=== PATIENT | female | born 1935 | race Caucasian/White ===

== ENCOUNTER → 2016-11-12 | Outpatient (CLI) | payer MEDICARE, OTHER ==
[~2016-11-12] MED LIST: /LOR25TA OR; ACET500C OR; ALLO100T OR; CALC500T49 OR; DOKTAB2 PO; EVISTA PO; FLEXERIL PO; HYDR25TA6 OR; LIDO5DIS TOP; MIRA33504 PO; OCCUVITE PO; OSTEOBIFLEX PO; PERC5TAB12 PO; PERCOCET PO; PRIL20CA9 PO; SENN1TAB2 PO; SYNT100T PO; SYNT125T OR; TYLE325T5 PO; VITA2000 PO; XARE15TA PO; [UNRECOGNIZED DRUG - OTHER] TOP
--- NOTE | 2016-11-12 14:44 | RADONC ---
RADIATION ONCOLOGY FOLLOWUP NOTE DATE: 11/12/2016 CHART NUMBER: [id number] DIAGNOSIS: Left-sided breast cancer. STAGE: I, B2hT4U0. DIAGNOSIS: Right-sided breast cancer. STAGE: 0, [id number]. ECOG PERFORMANCE STATUS: 0 FOLLOWUP NOTE: Ms. Bartlett is a very pleasant 81-year-old white female with the diagnosis of bilateral breast cancer who is presenting to us today for routine followup visit 18 years post completion of external beam radiation therapy to her left breast and 16 years post completion of external beam radiation therapy to her right breast. The patient presents today reporting that she is doing quite well with no complaints at this time related to her radiation therapy or disease. She has no breast, chest wall or bone pain. REVIEW OF SYSTEMS: The patient's review of systems is noncontributory. She denies nausea, vomiting, fevers, chills, night sweats, diplopia, headaches, anxiety or depression, anorexia, weight loss, visual disturbances, chest pain, urinary or bowel difficulties, bone pain, or neurological problems. PHYSICAL EXAMINATION: The patient is a well-developed, well-nourished white female in no acute distress. HEENT exam is normocephalic, atraumatic. Extraocular movements are intact. There is no palpable cervical, supraclavicular, infraclavicular, axillary, or inguinal lymphadenopathy present. Lungs are clear to auscultation and percussion. Heart has a regular rate and rhythm. Abdomen is benign with no hepatosplenomegaly, masses, or tenderness. The patient's left breast is free of masses or nodularity. Her right chest wall shows no evidence of nodularity, ulceration or residual disease. Skeletal examination reveals no tenderness to pressure or percussion of the bony skeleton. Extremities reveal no clubbing, cyanosis, or edema. Neurologic exam is grossly intact, as is the remainder of the physical examination. ASSESSMENT: The patient is clinically JUICE at this time will be seen by us again in 1 year for further followup. She will also continue be followed by her other physicians as well. cc: Thanh Andres Jr, MD
== END ==
LOC: M ONCR 08:41
PROVIDERS: ATTEND Radiology Radiation Oncology
DX: D05.11 Intraductal carcinoma in situ of right breast (principal); Z12.31 Encounter for screening mammogram for malignant neoplasm of breast
CPT/HCPCS: G0202; G0463

== ENCOUNTER → 2016-11-12 | Outpatient (CLI) | payer MEDICARE, OTHER ==
--- NOTE | 2016-11-12 10:02 | REP ---
UNILATERAL MAMMOGRAM LEFT BREAST: HISTORY: History of right breast cancer and right mastectomy. Also history left breast cancer. MLO and CC views of the left breast are performed and compared to multiple prior exams most recent of which is 11/08/2015. Benign calcifications are present. There is no new mass or clustered microcalcifications. IMPRESSION: ACR 2 benign mammogram left breast in this patient status post right mastectomy. Suggest followup mammogram in 1 year. This mammogram was interpreted with the aid of an FDA-approved computer-aided detection system. The patient states she has not had a clinical breast exam in over a year. The patient letter being requested is M1. Signed by Michael Parker MD 11/12/2016 05:35 P
== END ==
LOC: M RAD 08:17
PROVIDERS: ATTEND Nurse Practitioner Family
DX: Z12.31 Encounter for screening mammogram for malignant neoplasm of breast (principal)

== ENCOUNTER → 2017-01-29 | Outpatient (CLI) | payer MEDICARE, OTHER ==
[2017-01-29 11:41] LABS: MEAN CORPUSCULAR HEMOGLOBIN 30.3 pg (27.0-33.0); MEAN CORPUSCULAR HGB CONC 32.6 g/dl (32.0-36.5); WHITE BLOOD COUNT 7.7 10^3/uL (4.0-10.0)
--- NOTE | 2017-01-29 11:47 | REP ---
Chest two views HISTORY: Atrial fibrillation Comparison: 08/03/2015 A calcified granuloma is present in the left lower lobe. The right lung is clear. The heart is normal in size. The pulmonary vasculature is normal in appearance. A hiatal hernia is present. The bony structure is intact. IMPRESSION: No acute disease. Signed by Jason Landa MD 01/29/2017 11:39 A
[2017-01-29 11:59] LABS: INR 1.29
[2017-01-29 12:14] LABS: ALBUMIN 3.9 GM/DL (3.2-5.2); ALBUMIN/GLOBULIN RATIO 1.08 (1.00-1.93); ALKALINE PHOSPHATASE 65 U/L (45-117); ALT/SGPT 23 U/L (12-78); ANION GAP 6 MEQ/L (8-16); AST/SGOT 17 U/L (15-37); BILIRUBIN,TOTAL 0.7 MG/DL (0.2-1.0); BLOOD UREA NITROGEN 14 MG/DL (7-18); CALCIUM LEVEL 9.3 MG/DL (8.8-10.2); CARBON DIOXIDE LEVEL 32 MEQ/L (21-32); CHLORIDE LEVEL 100 MEQ/L (98-107); CREATININE FOR GFR 0.93 MG/DL (0.55-1.02); GLOMERULAR FILTRATION RATE > 60.0 (>32); GLUCOSE, FASTING 86 MG/DL (83-110); POTASSIUM SERUM 3.6 MEQ/L (3.5-5.1); SODIUM LEVEL 138 MEQ/L (136-145); TOTAL PROTEIN 7.5 GM/DL (6.4-8.2)
--- NOTE | 2017-01-30 23:15 | ECGEPIP ---
Stationary ECG Study [facility] Test Date: 2017-01-29 Pat Name: THIEN PENA Department: Room: - Gender: F Director Of Brand Marketing: YAS : [id number] Requested By: Zev Lara Order Number: [id number] Reading MD: Modesto Wood Measurements Intervals [place] Rate: 54 P: 21 AR: 180 QRS: -33 QRSD: 166 T: 53 QT: 472 QTc: 448 Interpretive Statements SINUS BRADYCARDIA MARKED LEFT AXIS DEVIATION LEFT BUNDLE BRANCH BLOCK OOMPARED TO THE LAST 2 TRACINGS IN THE SYSTEM, NO SIGNIFICANT CHANGES Electronically Signed On 01-30-2017 23:14:36 EDT by Modesto Wood
== END ==
LOC: M ADMPAT 09:22
PROVIDERS: ATTEND Orthopaedic Surgery
DX: M25.561 Pain in right knee (principal); M12.9 Arthropathy, unspecified; Z79.01 Long term (current) use of anticoagulants; Z01.818 Encounter for other preprocedural examination; Z79.899 Other long term (current) drug therapy

== ENCOUNTER 2017-02-16 05:47 | Inpatient (IN) | payer MEDICARE, OTHER ==
[2017-01-29 09:47] VITALS: BP 132/78
--- NOTE | 2017-02-09 13:19 | HPE ---
DATE OF ADMISSION: 02/16/2017 ADMITTING DIAGNOSIS: Symptomatic right knee osteoarthritis. HISTORY OF PRESENT ILLNESS: This is a pleasant female continuing to have symptomatic right knee osteoarthritis. She has consented for a right total knee arthroplasty per Dr. Marco Candelaria. Medical optimization per Dr. Andres on 01/30/2017, I am still awaiting optimization note. Per patient's history, she has been cleared. X-rays are consistent with advanced osteoarthritis. ALLERGIES: - ERYTHROMYCIN - TAPE - CODEINE - TRAMADOL MEDICATION LIST (List includes): - allopurinol 100 mg - Evista 60 mg - hydrochlorothiazide 25 mg - Osteo Bi-Flex Advanced Triple Strength - Synthroid 125 mcg - Xarelto. - PreserVision AREDS - Prilosec 10 mg MEDICAL PROBLEM LIST (includes): 1. Right knee osteoarthritis. 2. Hypercholesteremia. 3. Type 2 diabetes. 4. Essential hypertension. 5. Atrial fibrillation. 6. Visually impaired. 7. Thyroid disease. The patient was counseled to only take Synthroid and metoprolol the morning of surgery and will start metoprolol blood daily every morning. This is a note the patient provided from Dr. Andres's office. Additionally, she is counseled to stop Xarelto for two days, stop Evista now and it appears to be for one month after surgery. SURGICAL HISTORY (includes): 1. Tonsillectomy with adenoidectomy. 2. Dilation and curettage. FAMILY HISTORY: Positive for cancer. SOCIAL HISTORY: Former smoker. Drinks alcohol beverages rarely. Denies illicit drugs. REVIEW OF SYSTEMS: Denies chest pain, shortness of breath, dyspnea on exertion, fever, chills, malaise, upper respiratory or urinary tract symptoms. PHYSICAL EXAMINATION: Height 64 inches, weight 196, temperature 97.3, blood pressure (BP) 118/82, respirations 13, pulse 37, body mass index (BMI) 33.6. This is a pleasant overweight female in no acute distress. She is alert and oriented times three. Mood and affect are appropriate. She is ambulating slow with favoring of left lower extremity. No gross antalgia about the right knee which is benign, noninfectious looking, not hot to touch. Positive medial joint line tenderness with crepitance about the knee through flexion and extension. Range of motion is 0 to 90. She is stable in both collateral ligaments, patella and quad tendons without palpable defects. Patellofemoral joint congruent, static and dynamic. No popliteal fossa mass or pain. Right hip range of motion is not grossly limited or irritable. It is noted that her left knee has a well healed anterior vertical knee scar site consistent with arthroplasty. Bowel sounds times four, soft, nontender. Chest: Rises symmetrically. Regular rate and rhythm. Lungs: Clear to auscultation. Neck: Supple. Negative jugular venous distention (JVD) or bruits. Normocephalic. LABS: Were reviewed. Nasal and sinus culture showed a few methicillin- resistant resistant Staph aureus. Urine culture negative. Otherwise, prothrombin time was 16.4, anion gap 6. Chest x-ray with no acute disease read by Dr. Landa on 01/29/2017. EKG showing sinus bradycardia read by Dr. Modesto Wood with marked left axis deviation and left bundle branch block. Consent for surgery was completed on 01/01/2017. IMPRESSION: 1. Continuing symptomatic right knee osteoarthritis. 2. Patient consented for a right total knee arthroplasty per Dr. Marco Candelaria. 3. Medical optimization with Dr. Andres 01/30/2017, which we are still awaiting a note. 4. On-call to OR 2 grams IV Kefzol in OR. 5. Sequential compression device (SCD) and thromboembolic deterrent stockings (TEDS) in OR. 6. Consent was visualized in clinic today. 7. The patient is requesting a longer stay in postoperative rehab to try and advance her status sooner since she feels she could do therapy more than two days a week. ADDENDUM: Per the patient's positive nasal and sinus culture for methicillin-resistant Staphylococcus aureus (MRSA), she was provided a prescription of Bactrim DS times 5 days. Edited 02/09/2017 juli DUDLEY
[~2017-02-16] VITALS: Ht 163.8 cm; Wt 87.7 kg
[~2017-02-16 05:47] MED LIST changes: -MIRA33504 PO; -PERC5TAB12 PO; -SENN1TAB2 PO
[2017-02-16] MEDS ORDERED: LR 1,000 ML IV SCH ×2 (06:00→10:00)
[2017-02-16] MEDS ORDERED: ACETAMINOPHEN 500 MG TAB PO ONE ×2 (06:00→07:15)
[2017-02-16] MEDS ORDERED: LIDOCAINE 1% MDV 20ML VIAL SQ PRN (06:00)
[2017-02-16] MEDS ORDERED: VANCOMYCIN HCL 1,000 MG, VIAL MATE ADAPTER 1 EACH in D5W 250 ML IV ONE (06:30)
[2017-02-16] MEDS ORDERED: fentaNYL 100 MCG/2 ML INJECTION (J3010) As Ordered ONE ×2 (07:04→07:16)
[2017-02-16] MEDS ORDERED: MIDAZOLAM INJ 2 MG/2 ML VIAL (J2250) As Ordered ONE ×3 (07:04→08:14)
[2017-02-16] MEDS ORDERED: ceFAZolin 1GM INJ (J0690) As Ordered ONE (07:08)
[2017-02-16] MEDS ORDERED: TRANEXAMIC ACID 100 MG/ML 10ML VIAL As Ordered ONE ×2 (07:08→07:09)
[2017-02-16] MEDS ORDERED: EPINEPHrine INJ 1 MG/ML 1ML AMP As Ordered ONE (07:08)
[2017-02-16] MEDS ORDERED: BUPIVACAINE LIPOSOME/PF 1.3% 20 ML VIAL (13.3MG/ML)(EXPAREL) As Ordered ONE (07:09)
[2017-02-16] MEDS ORDERED: LIDOCAINE 2% INJ 100 MG/5 ML SDV (FOR ANES.) As Ordered ONE (07:16)
[2017-02-16] MEDS ORDERED: PROPOFOL 200 MG/20 ML VIAL As Ordered ONE ×2 (07:16→09:19)
[2017-02-16] MEDS ORDERED: fentaNYL 100 MCG/2 ML INJECTION (J3010) IV ONE (08:00)
[2017-02-16] MEDS ORDERED: MIDAZOLAM INJ 2 MG/2 ML VIAL (J2250) IV ONE (08:00)
[2017-02-16] MEDS ORDERED: ePHEDrine SULFATE 25 MG/5 ML(5MG/ML) SYRINGE As Ordered ONE (08:25)
[2017-02-16] MEDS ORDERED: ONDANSETRON 4MG/2ML VIAL (J2405) As Ordered ONE (08:38)
[2017-02-16] MEDS ORDERED: MORPHINE 1MG/ML IN 0.9% NACL 100ML IV BAG As Ordered ONE (09:55)
[2017-02-16] MEDS ORDERED: NALBUPHINE HCL 10 MG/ML AMP (J2300) IV PRN (10:00)
[2017-02-16] MEDS ORDERED: FLEET ENEMA PR PRN (10:00)
[2017-02-16] MEDS ORDERED: ONDANSETRON 4MG/2ML VIAL (J2405) IV PRN ×2 (10:00→10:45)
[2017-02-16] MEDS ORDERED: EPIDURAL/PCA KEYS XX PRN (10:00)
[2017-02-16] MEDS ORDERED: NALOXONE INJ 0.4 MG/1 ML VIAL (J2310) IV PRN (10:00)
[2017-02-16] MEDS ORDERED: MORPHINE 1MG/ML IN 0.9% NACL 100ML IV BAG IV PRN (10:00)
[2017-02-16] MEDS ORDERED: diphenhydrAMINE INJ 50MG/ML VIAL (J1200) IV PRN (10:00)
--- NOTE | 2017-02-16 10:27 | RO ---
DATE OF PROCEDURE: 02/16/2017 PREOPERATIVE DIAGNOSIS: Right knee valgus arthritis. POSTOPERATIVE DIAGNOSIS: Right knee valgus arthritis. PROCEDURE: Right total knee arthroplasty using a size 3 cruciate-retaining femoral component, size 2.5 tibial tray with a 10 mm rotating-platform polyethylene insert and a 32 mm polyethylene button. The prosthesis was made by [employer]. It was a PFC knee. SURGEON: Zev Candelaria MD BAR ASSISTANT: Crow De La Cruz PA-C ANESTHESIA: Spinal with right femoral nerve block. COMPLICATIONS: None. ESTIMATED BLOOD LOSS: Less than 20 mL. SPECIMENS: Joint surface. COMPLICATIONS: None. DESCRIPTION OF PROCEDURE: After antibiotics were given intravenously preoperatively and a successful right femoral nerve block and a spinal anesthetic was induced, the tourniquet was placed on the right upper thigh and not inflated. The right lower extremity was then prepped and draped in the usual sterile fashion. The leg was elevated. Then, after appropriate time-out, the tourniquet was inflated, and then a longitudinal incision was made for a medial parapatellar approach to the knee. Bovie cautery was used to coagulate crossing vessels. A medial parapatellar arthrotomy was then performed. Subperiosteal dissection around the proximal medial and lateral tibial plateau was performed. Then, we everted the patella and flexed the knee. The drill placed down the center of the femoral canal, followed by the intramedullary gian, and the distal femoral cutting block set at a 5-degree valgus cut at 10-mm resection level for a right knee. It was pinned into position and the distal cut performed. AP sizing jig measured at just shy of a 3. Thus, I elected to go with a size 3, which was equal to her opposite left side. The external rotation block was pinned in position, followed by the 4-in-1 block. Epicondyle axis and Whitesides line appeared to show rotation was appropriate. We then performed the anterior and posterior chamfer cuts and then exposed the proximal tibia, used the extramedullary alignment jig to estimate being parallel to the mechanical axis of the tibia. We referenced off the lateral tibial condyle at 4-mm resection level and measured over onto the medial side and we took 6 from there. So, it seemed to be appropriate for this valgus knee. Extramedullary gian was used a secondary check. It appeared to be parallel from the mechanical axis. Thus, we performed the proximal tibial osteotomy, and then we used the lamina van cdl driver medially, performed a completion of lateral meniscectomy, debriding the posterior and medial osteophytes, and then we placed the lamina van cdl driver laterally, and performed a completion of medial meniscectomy with debridement of the posterior and lateral osteophytes. The spacer blocks 10 mm fit perfectly in both flexion and in extension with good stability to varus and valgus stress testing. We then exposed the proximal tibia, sized for a #2.5 tibial tray, which was pinned into position, followed by the reamer and broach, and then applied the polyethylene trial, and then the femoral component, brought the knee into extension, everted the patella, and performed a patellar osteotomy, sized for a 32 button. The lug holes were drilled. Patellofemoral trial was placed, and the patellofemoral tracking was anatomic. We drilled the lug holes for the femur, removed all the trial components, and then injected Exparel in the periosteal tissues around the femur and the tibia, as well as the posterior capsule, while my health assistant, Mr. Crow De La Cruz, mixed the cement on the back table. I then prepared the bony surfaces for cementing with a copious amount of pulsatile lavage irrigant solution. Once all the bony surfaces were thoroughly dried, we then cemented the tibial tray, removed excess cement, placed the polyethylene, cemented the femoral component, removed excess cement, brought the knee into extension, everted the patella, and cemented the patellar component, and held it with a clamp, and then removed all excess cement, and waited until the cement hardened in that position. A copious amount of pulsatile lavage irrigant solution was instilled into the knee joint once again as we were waiting for the cement to harden. That was followed by the tranexamic acid. I then began closing the arthrotomy with two apex #1 polydioxanone suture (PDS) sutures and one medial parapatellar suture, then a running #1 double-arm Stratafix was used to close the capsule. Then, the tourniquet was released. Irrigated between layers. Closed the deep subdermal tissues with interrupted #2-0 PDS sutures. The skin was closed with lily, covered by Adaptic dry sterile bulky dressing. Mr. Crow De La Cruz was critical to the success of this operation by helping to manipulate the knee, helping with appropriate soft tissue retraction, helped to mix the cement, helped to close the wound, amongst many other tasks.
[2017-02-16] MEDS: fentaNYL 100 MCG/2 ML INJECTION (J3010) IV PRN ×2 (10:30→10:39)
[2017-02-16] MEDS ORDERED: MORPHINE 2 MG/ML 1ML SYRINGE IV PRN (10:45)
[2017-02-16] MEDS ORDERED: METOCLOPRAMIDE INJ 10MG/2ML VIAL (J2765) IV PRN (10:45)
[2017-02-16] MEDS ORDERED: PERCOCET 5MG/325MG TAB PO PRN ×2 (10:45→14:45)
[2017-02-16] MEDS ORDERED: hydroCHLOROthiazide 25 MG TAB PO ONE (11:15)
[2017-02-16 11:45] VITALS: BP 99/61
[2017-02-16] MEDS: LR 1,000 ML IV SCH ×2 (11:47→21:12)
[2017-02-16 12:15] VITALS: BP 116/61
[2017-02-16 13:15] VITALS: BP 106/61
[2017-02-16 14:15] VITALS: BP 146/74
[2017-02-16] MEDS: ONDANSETRON 4 MG TAB (S0181) PO PRN ×2 (15:02→21:28)
[2017-02-16] MEDS: PERCOCET 5MG/325MG TAB PO PRN ×2 (15:03→21:12)
[2017-02-16 15:15] VITALS: BP 140/75
[2017-02-16] MEDS: HEPARIN SOD (PORCINE) 5000 UNITS/ML VIAL SQ SCH ×2 (16:50→21:06)
[2017-02-16] MEDS: VANCOMYCIN HCL 1,000 MG, VIAL MATE ADAPTER 1 EACH in D5W 250 ML IV SCH (18:49)
[2017-02-16] MEDS: ONDANSETRON 4MG/2ML VIAL (J2405) IV PRN (18:49)
[2017-02-16 20:00] VITALS: BP 185/83
--- NOTE | 2017-02-16 20:50 | CR.PDOC ---
[facility] Consultation Consultation HOSPITALIST CONSULT NOTE Date of consult: 02/16/2017 Referring Provider: Dr. Shipman PCP: Dr. Andres Reason for Consult: Management of chronic medical conditions HPI: 82-year-old female with hyperlipidemia, hypertension, paroxysmal A. fib, macular degeneration, hypothyroidism who underwent left total knee replacement today with Dr. Shipman. She is seen postoperatively. She endorses some nausea and vomiting but denies any chest pain or difficulty breathing. Past medical history: Hyperlipidemia, hypertension, paroxysmal A. fib, macular degeneration, hypothyroidism, breast cancer status post right mastectomy and radiation, diabetes mellitus as documented however the patient denies this Past surgical history: Right mastectomy, tonsillectomy with adenoidectomy, D&C Family history: Cancer Social history: The patient quit smoking approximately 48 years ago. She only drinks an alcoholic beverage on a very rare occasion she denies any drug use. Allergies: Aminoglycosides, bacitracin, codeine, erythromycin, hayfever, neomycin, and polymyxin B, tape Review of systems: General: Negative for fever and chills Eyes: Negative for vision changes and ocular discharge ENT: Negative for sore throat and nose bleed Cardiovascular: Negative for chest pain and palpitations Respiratory: Negative for shortness of breath, positive for cough GI: Positive for nausea and vomiting. Positive for 1 loose stool both yesterday and the day before. Musculoskeletal: Negative for neck and back pain Skin: Negative for rash Neuro: Negative for headache and dizziness, positive for numbness and tingling of her right toes Psych: Positive for depression and anxiety, negative for suicidal ideation Endocrine: Negative for polyuria : Negative for dysuria Heme: Negative for bleeding Home meds: See below Physical exam: Vital signs: Vital Sign - Last 24 Hours 02/16/17 02/16/17 02/16/17 02/16/17 07:04 07:10 07:25 07:38 Temp 97.8 Pulse 76 58 58 52 Resp 18 20 20 20 B/P (MAP) 147/78 (101) 187/88 (121) 182/79 (113) 160/73 (102) Pulse Ox 97 100 100 100 O2 Delivery Room Air High Flow Cannula High Flow Cannula High Flow Cannula O2 Flow Rate 3 3 3 02/16/17 02/16/17 02/16/17 02/16/17 09:37 09:55 10:10 10:25 Temp 97.5 97.7 Pulse 55 53 55 55 Resp 16 16 16 18 B/P (MAP) 151/65 (93) 148/87 (107) 169/72 (104) 190/81 (117) Pulse Ox 95 92 97 94 O2 Delivery Room Air Room Air Room Air Room Air 02/16/17 02/16/17 02/16/17 02/16/17 10:30 10:39 10:40 10:55 Temp 96.8 Pulse 51 54 Resp 16 16 18 18 B/P (MAP) 180/78 (112) 182/74 (110) Pulse Ox 99 96 O2 Delivery Nasal Cannula Nasal Cannula O2 Flow Rate 2 2 02/16/17 02/16/17 02/16/17 02/16/17 11:10 11:45 12:00 12:15 Temp 97.0 96.9 96.6 Pulse 54 58 58 Resp 16 20 12 B/P (MAP) 162/71 (101) 99/61 (74) 116/61 (79) Pulse Ox 96 95 97 O2 Delivery Nasal Cannula Nasal Cannula Nasal Cannula Nasal Cannula O2 Flow Rate 2 2.0 2.0 2.0 02/16/17 02/16/17 02/16/17 02/16/17 13:15 14:15 15:03 15:15 Temp 97.0 97.4 97.3 Pulse 56 56 57 Resp 10 12 20 14 B/P (MAP) 106/61 (76) 146/74 (98) 140/75 (96) Pulse Ox 98 98 96 O2 Delivery Nasal Cannula Nasal Cannula Nasal Cannula O2 Flow Rate 2.0 2.0 2.0 02/16/17 15:33 Resp 18 Gen.: awake, alert, no acute distress Eyes: Extraocular movements intact, normal sclera ENT: Moist mucous membranes Cardiovascular: RRR, 3 out of 6 systolic murmur Lungs: clear to auscultation bilaterally, no rales, rhonchi, or wheeze Abdomen: Soft, NT/ND, normal BS Extremities: Pedal pulses intact bilaterally Neuro: alert and oriented 3, normal speech, no focal deficits Psych: Normal mood with congruent affect Labs and radiology: See below None to review Assessment and plan: 82-year-old female with hyperlipidemia, hypertension, paroxysmal A. fib, macular degeneration, hypothyroidism who underwent left total knee replacement today with Dr. Shipman. We have been consulted for management of her chronic medical problems. 1. Hypothyroidism: Continue home Synthroid. 2. Paroxysmal A. fib: Continue home Xarelto. The patient is not on any rate suppressing medications at home but is currently rate controlled, continue to monitor rate. 3. Hyperlipidemia: No home medications reported. 4. Hypertension: Continue home HCTZ. 5. Questionable diabetes mellitus: It is documented that the patient has diabetes mellitus, however, she denies this and states she has never taken medication for it. We will check an A1c tomorrow morning. 6. Systolic murmur on exam: The patient states she has never been told before that she has a murmur, but she thinks that she had an echocardiogram with Dr. Stanley. We will request these records from Dr. Stanley's office. DVT prophylaxis: As per her surgical team Thank you for this consult. We will continue to follow along with you. Dr. Mela Gonzalez will assume care of the patient tomorrow morning. Vital Signs/I&O Vital Signs Date Time Temp Pulse Resp B/P (MAP) Pulse Ox O2 Delivery O2 Flow Rate FiO2 02/16/17 15:33 18 02/16/17 15:15 97.3 57 140/75 (96) 96 Nasal Cannula 2.0 I&O- Last 24 Hours up to 6 AM 02/17/17 06:00 Intake Total 2225 ml Output Total 200 ml Balance 2025 ml Allergies Coded Allergies: Aminoglycosides (Verified Allergy, Unknown, 08/03/12) Bacitracin (Verified Allergy, Unknown, 08/03/12) Codeine (Verified Allergy, Unknown, 08/03/12) Erythromycin (Verified Allergy, Unknown, 08/03/12) HAY FEVER (Verified Allergy, Unknown, 05/16/05) Neomycin (Verified Allergy, Unknown, 08/03/12) Polymyxin B (Verified Allergy, Unknown, 08/03/12) TAPE (Verified Allergy, Unknown, BANDAIDS, 08/16/15) Home Medications Scheduled Allopurinol (Allopurinol) 100 Mg Tab, 100 MG OR QAM, (Reported) Cholecalciferol (Vitamin D3) 2,000 Unit Cap, 2,000 UNIT PO QAM, (Reported) Hctz (Hydrochlorothiazide) 25 Mg Tab, 25 MG OR QAM, (Reported) Levothyroxine Sodium (Synthroid) 100 Mcg Tab, 112 MCG PO QAM, (Reported) Rivaroxaban (Xarelto) 15 Mg Tab, 20 MG PO QHS, (Reported) [Evista] , 60 MG PO DAILY, (Reported) [Occuvite] , 1 TABS PO BID, (Reported) [Osteobiflex] , 1 TAB PO BID, (Reported) Scheduled PRN Acetaminophen (Tylenol) 325 Mg Tab, 650 MG PO Q4HP PRN for PAIN, (Reported) [Metra Lotion] , TOP BID PRN for FACE, (Reported) HELLEN DAVIS Feb 16, 2017 20:50
[2017-02-17 00:15] VITALS: BP 156/68
[2017-02-17] MEDS: ONDANSETRON 4MG/2ML VIAL (J2405) IV PRN ×2 (02:50→08:59)
[2017-02-17] MEDS: PERCOCET 5MG/325MG TAB PO PRN ×4 (02:52→20:10)
[2017-02-17 04:15] VITALS: BP 157/68
[2017-02-17] MEDS: LEVOTHYROXINE 112MCG TABLET (0.112MG) PO SCH (06:09)
[2017-02-17] MEDS: VANCOMYCIN HCL 1,000 MG, VIAL MATE ADAPTER 1 EACH in D5W 250 ML IV SCH (06:09)
[2017-02-17] MEDS: ONDANSETRON 4 MG TAB (S0181) PO PRN ×2 (06:25→14:57)
[2017-02-17 07:04] LABS: MEAN CORPUSCULAR HEMOGLOBIN 31.1 pg (27.0-33.0); MEAN CORPUSCULAR HGB CONC 33.4 g/dl (32.0-36.5); MEAN CORPUSCULAR VOLUME 93.2 fl (80.0-96.0); RED CELL DISTRIBUTION WIDTH 14.7 % (11.5-14.5); WHITE BLOOD COUNT 9.2 10^3/uL (4.0-10.0)
[2017-02-17 07:17] LABS: INR 1.09
[2017-02-17 07:34] LABS: ANION GAP 4 MEQ/L (8-16); BLOOD UREA NITROGEN 9 MG/DL (7-18); CALCIUM LEVEL 8.7 MG/DL (8.8-10.2); CARBON DIOXIDE LEVEL 31 MEQ/L (21-32); CHLORIDE LEVEL 100 MEQ/L (98-107); CREATININE FOR GFR 0.74 MG/DL (0.55-1.02); GLOMERULAR FILTRATION RATE > 60.0 (>32); GLUCOSE, FASTING 113 MG/DL (83-110); POTASSIUM SERUM 3.4 MEQ/L (3.5-5.1); SODIUM LEVEL 135 MEQ/L (136-145)
[2017-02-17] MEDS: MOM 30ML SUSPENSION UDC PO SCH (08:58)
[2017-02-17] MEDS: HEPARIN SOD (PORCINE) 5000 UNITS/ML VIAL SQ SCH (08:59)
[2017-02-17] MEDS: SENOKOT S TAB PO SCH ×2 (08:59→20:11)
[2017-02-17] MEDS: MIRALAX *UNIT DOSE* 17GM PACKET PO SCH (08:59)
[2017-02-17] MEDS: ALLOPURINOL 100 MG TAB PO SCH (09:00)
[2017-02-17] MEDS: hydroCHLOROthiazide 25 MG TAB PO SCH (09:00)
[2017-02-17 10:00] VITALS: BP 95/66
--- NOTE | 2017-02-17 11:10 | REP ---
AP LATERAL RIGHT KNEE, TWO VIEWS: HISTORY: Knee replacement. The patient is status post right total knee replacement. There is no acute fracture or dislocation. A small amount of subcutaneous air and surgical lily are present in the overlying soft tissue. IMPRESSION: The patient is status post right total knee replacement. There is anatomic alignment. Signed by Jason Landa MD 02/17/2017 11:15 A
[2017-02-17] MEDS ORDERED: MORPHINE 15 MG SA TAB PO PRN (11:30)
[2017-02-17] MEDS: METOCLOPRAMIDE 10 MG TAB PO SCH ×3 (12:24→20:11)
[2017-02-17] MEDS ORDERED: POTASSIUM CHLORIDE 10 MEQ SR TABLET PO ONE (13:00)
[2017-02-17] MEDS ORDERED: WARFARIN SOD 5 MG TAB PO ONE (17:00)
[2017-02-17] MEDS: RIVAROXABAN 20 MG TAB (XARELTO) PO SCH (17:52)
--- NOTE | 2017-02-17 18:07 | IPNPDOC ---
Subjective Date Seen The patient was seen on 02/17/17. Subjective Chief Complaint/HPI The patient is a 82-year-old female admitted with a reason for visit of Arthritis Right Knee. Events since last encounter patient complaining of nausea and dry heaves, also complaining of severe pain in the operated knee which, has not been able to eat anything. Objective Physical Examination General Exam: Positive: Alert, Cooperative, No Acute Distress Eye Exam: Positive: PERRLA, Conjunctiva & lids normal, EOMI, Negative: Sclera icteric ENT Exam: Positive: Atraumatic, Mucous membr. moist/pink, Pharynx Normal Neck Exam: Positive: Supple, Negative: JVD, thyromegaly Chest Exam: Positive: Clear to auscultation, Normal air movement Heart Exam: Positive: Rate Normal, Regular Rhythm, Normal S1, Normal S2, Negative: Murmurs, Rubs Abdomen Exam: Positive: Normal bowel sounds, Soft, Negative: Tenderness, Hepatospenomegaly Extremity Exam: Positive: Normal pulses, Negative: Clubbing, Cyanosis, Edema Skin Exam: Positive: Nl turgor and temperature, Negative: Rash, Breakdown Assessment /Plan Problems (1) S/P total knee arthroplasty Status: Acute Problem Text: right total knee arthroplasty for advanced osteoarthritis. pain control as per ortho. Patient is on xarelto for a fib which will cover also dvt prophylaxis. (2) Paroxysmal a-fib Status: Chronic Problem Text: continue xarelto. (3) Hyperlipidemia Status: Chronic (4) Hypertension Status: Chronic Problem Text: continue home medications with hold parameters. (5) Hypothyroid Status: Chronic Problem Text: continue synthroid. (6) Macular degeneration Status: Chronic (7) History of breast cancer Status: Resolved Problem Text: had right mastectomy and radiation in the past. Plan/VTE VTE Prophylaxis Ordered?: Yes VS, I&O, 24H, Fishbone Vital Signs/I&O Vital Signs Date Time Temp Pulse Resp B/P (MAP) Pulse Ox O2 Delivery O2 Flow Rate FiO2 02/17/17 15:27 20 02/17/17 10:00 98.2 61 95/66 (76) 91 Room Air 02/17/17 06:30 2.0 I&O- Last 24 Hours up to 6 AM 02/18/17 06:00 Intake Total 0 ml Balance 0 ml Laboratory Data 24H LABS Laboratory Tests 2 02/17/17 06:53: Nucleated Red Blood Cells % (auto) 0.0, Prothrombin Time 14.3, Prothromb Time International Ratio 1.09, Anion Gap 4L, Glomerular Filtration Rate > 60.0, Estimated Mean Plasma Glucose 111H, Hemoglobin A1c 5.5, Blood Urea Nitrogen 9, Creatinine 0.74, Sodium Level 135L, Potassium Level 3.4L, Chloride Level 100, Carbon Dioxide Level 31, Calcium Level 8.7L CBC/BMP Laboratory Tests 02/17/17 06:53 Red Blood Count 3.66 L, Mean Corpuscular Volume 93.2, Mean Corpuscular Hemoglobin 31.1, Mean Corpuscular Hemoglobin Concent 33.4, Red Cell Distribution Width 14.7 H, Calcium Level 8.7 L RADHIKA HERNANDEZ MD Feb 17, 2017 18:07
[2017-02-17 22:00] VITALS: BP 100/64
[2017-02-18] MEDS: METOCLOPRAMIDE 10 MG TAB PO SCH ×4 (05:58→21:06)
[2017-02-18] MEDS: LEVOTHYROXINE 112MCG TABLET (0.112MG) PO SCH (05:59)
[2017-02-18 06:00] VITALS: BP 115/68
[2017-02-18] MEDS: PERCOCET 5MG/325MG TAB PO PRN (06:00)
[2017-02-18 07:00] LABS: MEAN CORPUSCULAR HEMOGLOBIN 30.9 pg (27.0-33.0); MEAN CORPUSCULAR HGB CONC 32.5 g/dl (32.0-36.5); MEAN CORPUSCULAR VOLUME 94.9 fl (80.0-96.0); WHITE BLOOD COUNT 9.6 10^3/uL (4.0-10.0)
[2017-02-18 07:11] LABS: INR 2.32
[2017-02-18 07:19] LABS: ANION GAP 6 MEQ/L (8-16); BLOOD UREA NITROGEN 10 MG/DL (7-18); CALCIUM LEVEL 8.5 MG/DL (8.8-10.2); CARBON DIOXIDE LEVEL 27 MEQ/L (21-32); CHLORIDE LEVEL 99 MEQ/L (98-107); CREATININE FOR GFR 0.91 MG/DL (0.55-1.02); GLOMERULAR FILTRATION RATE > 60.0 (>32); GLUCOSE, FASTING 90 MG/DL (83-110); POTASSIUM SERUM 3.5 MEQ/L (3.5-5.1); SODIUM LEVEL 132 MEQ/L (136-145)
[2017-02-18] MEDS: MOM 30ML SUSPENSION UDC PO SCH (08:57)
[2017-02-18] MEDS: MIRALAX *UNIT DOSE* 17GM PACKET PO SCH (08:57)
[2017-02-18] MEDS: hydroCHLOROthiazide 25 MG TAB PO SCH (09:00)
[2017-02-18] MEDS: ALLOPURINOL 100 MG TAB PO SCH (09:22)
[2017-02-18] MEDS: SENOKOT S TAB PO SCH ×2 (09:22→21:06)
[2017-02-18 14:00] VITALS: BP 152/72
--- NOTE | 2017-02-18 15:05 | IPNPDOC ---
Subjective Date Seen The patient was seen on 02/18/17. Subjective Chief Complaint/HPI The patient is a 82-year-old female admitted with a reason for visit of Arthritis Right Knee. Events since last encounter feeling much better this am . Pain controlled, no nausea or vomiting. Objective Physical Examination General Exam: Positive: Alert, Cooperative, No Acute Distress Eye Exam: Positive: PERRLA, Conjunctiva & lids normal, EOMI, Negative: Sclera icteric ENT Exam: Positive: Atraumatic, Mucous membr. moist/pink, Pharynx Normal Neck Exam: Positive: Supple, Negative: JVD, thyromegaly Chest Exam: Positive: Clear to auscultation, Normal air movement Heart Exam: Positive: Rate Normal, Regular Rhythm, Normal S1, Normal S2, Negative: Murmurs, Rubs Abdomen Exam: Positive: Normal bowel sounds, Soft, Negative: Tenderness, Hepatospenomegaly Extremity Exam: Positive: Normal pulses, Negative: Clubbing, Cyanosis, Edema Skin Exam: Positive: Nl turgor and temperature, Negative: Rash, Breakdown Assessment /Plan Problems (1) S/P total knee arthroplasty Status: Acute Problem Text: right total knee arthroplasty for advanced osteoarthritis. pain control as per ortho. Patient is on xarelto for a fib which will cover also dvt prophylaxis. (2) Paroxysmal a-fib Status: Chronic Problem Text: continue xarelto. (3) Hyperlipidemia Status: Chronic (4) Hypertension Status: Chronic Problem Text: continue home medications with hold parameters. (5) Hypothyroid Status: Chronic Problem Text: continue synthroid. (6) Macular degeneration Status: Chronic (7) History of breast cancer Status: Resolved Problem Text: had right mastectomy and radiation in the past. Plan/VTE VTE Prophylaxis Ordered?: Yes VS, I&O, 24H, Fishbone Vital Signs/I&O Vital Signs Date Time Temp Pulse Resp B/P (MAP) Pulse Ox O2 Delivery O2 Flow Rate FiO2 02/18/17 06:39 16 Room Air 02/18/17 06:00 98.6 79 115/68 (84) 91 02/17/17 06:30 2.0 I&O- Last 24 Hours up to 6 AM 02/19/17 06:00 Intake Total 360 ml Balance 360 ml Laboratory Data 24H LABS Laboratory Tests 2 02/18/17 06:43: Nucleated Red Blood Cells % (auto) 0.0, Prothrombin Time 26.4H, Prothromb Time International Ratio 2.32, Anion Gap 6L, Glomerular Filtration Rate > 60.0, Blood Urea Nitrogen 10, Creatinine 0.91, Sodium Level 132L, Potassium Level 3.5 , Chloride Level 99, Carbon Dioxide Level 27, Calcium Level 8.5L CBC/BMP Laboratory Tests 02/18/17 06:43 Red Blood Count 3.76 L, Mean Corpuscular Volume 94.9, Mean Corpuscular Hemoglobin 30.9, Mean Corpuscular Hemoglobin Concent 32.5, Red Cell Distribution Width 15.0 H, Calcium Level 8.5 L RADHIKA HERNANDEZ MD Feb 18, 2017 15:05
[2017-02-18] MEDS: ACETAMINOPHEN TAB 650MG DOSE (2X325MG) PO PRN ×2 (18:03→21:07)
[2017-02-18] MEDS: RIVAROXABAN 20 MG TAB (XARELTO) PO SCH (18:03)
[2017-02-18 22:00] VITALS: BP 126/69
[2017-02-19] MEDS: ACETAMINOPHEN TAB 650MG DOSE (2X325MG) PO PRN ×2 (04:59→09:16)
[2017-02-19] MEDS: LEVOTHYROXINE 112MCG TABLET (0.112MG) PO SCH (05:00)
[2017-02-19 06:00] VITALS: BP 122/61
[2017-02-19] MEDS ORDERED: MIRA33504 PO (07:08)
[2017-02-19] MEDS ORDERED: PERC5TAB12 PO (07:08)
[2017-02-19] MEDS ORDERED: SENN1TAB2 PO (07:08)
[2017-02-19 07:18] LABS: MEAN CORPUSCULAR HEMOGLOBIN 30.7 pg (27.0-33.0); MEAN CORPUSCULAR HGB CONC 32.7 g/dl (32.0-36.5); MEAN CORPUSCULAR VOLUME 93.9 fl (80.0-96.0); WHITE BLOOD COUNT 9.8 10^3/uL (4.0-10.0)
[2017-02-19 07:24] LABS: INR 2.21
[2017-02-19 07:27] LABS: ANION GAP 5 MEQ/L (8-16); BLOOD UREA NITROGEN 9 MG/DL (7-18); CALCIUM LEVEL 8.7 MG/DL (8.8-10.2); CARBON DIOXIDE LEVEL 32 MEQ/L (21-32); CHLORIDE LEVEL 98 MEQ/L (98-107); CREATININE FOR GFR 0.76 MG/DL (0.55-1.02); GLOMERULAR FILTRATION RATE > 60.0 (>32); GLUCOSE, FASTING 96 MG/DL (83-110); POTASSIUM SERUM 3.4 MEQ/L (3.5-5.1); SODIUM LEVEL 135 MEQ/L (136-145)
[2017-02-19] MEDS ORDERED: POTASSIUM CHLORIDE 10 MEQ SR TABLET PO ONE (08:00)
[2017-02-19] MEDS: METOCLOPRAMIDE 10 MG TAB PO SCH ×2 (09:15→12:27)
[2017-02-19] MEDS: SENOKOT S TAB PO SCH (09:16)
[2017-02-19] MEDS: ALLOPURINOL 100 MG TAB PO SCH (09:16)
[2017-02-19] MEDS: MIRALAX *UNIT DOSE* 17GM PACKET PO SCH (09:17)
[2017-02-19] MEDS: hydroCHLOROthiazide 25 MG TAB PO SCH (09:17)
[2017-02-19] MEDS: MOM 30ML SUSPENSION UDC PO SCH (09:17)
--- NOTE | 2017-02-24 16:42 | DSES ---
DATE OF ADMISSION: 02/16/2017 DATE OF DISCHARGE: 02/19/2017 ADMITTING PHYSICIAN: Dr. Candelaria ADMITTING DIAGNOSIS: Right knee osteoarthritis. OTHER DIAGNOSES: 1. Hyperlipidemia. 2. Type 2 diabetes. 3. Essential hypertension. 4. Atrial fibrillation. 5. Thyroid disease. DISCHARGE DIAGNOSIS: Right knee degenerative arthritis status post right total knee arthroplasty. HISTORY: The patient is an 82-year-old female with progressively worsening right knee pain and stiffness. She failed to improve with conservative measures and continued to have pain with weightbearing activities and activities of daily living. She has consented for an elective right total knee arthroplasty with Dr. Candelaria. OPERATION PERFORMED: Right total knee arthroplasty. HOSPITAL COURSE: The patient underwent a right total knee arthroplasty under spinal anesthesia with a right femoral nerve block. Surgery was uneventful. Her hospital course was without complication, although she did develop some nausea and vomiting while inpatient that resolved prior to her being discharged. The patient was up with physical therapy per their protocol, weightbearing as tolerated on the right lower extremity. She was discharged on oral pain medications and will resume her preoperative medications and diet. She will take her Coumadin and use her thromboembolic-deterrent stockings for 30 days postoperatively to prevent deep venous thrombosis. The patient will followup in our office in 12-14 days for a wound check and staple removal. She is encouraged to contact our office sooner if there is any increased pain, drainage, redness, numbness or tingling in the extremity, fever greater than 101 degrees, or any other concerns. Please see medical record for additional details. LUIS ENRIQUE
== END 2017-02-19 13:00 | DRG 470 ==
LOC: M OR 05:47 → M MS5PR 11:30 → EEVIPCON 14:30
PROVIDERS: ADMIT Orthopaedic Surgery; ATTEND Orthopaedic Surgery
PROC: 0SRC0J9 Replacement of Right Knee Joint with Synthetic Substitute, Cemented, Open Approach (ICD-10-PCS; principal; 2017-02-16 07:30)
DX: M17.11 Unilateral primary osteoarthritis, right knee (principal); E78.00 Pure hypercholesterolemia, unspecified; I10 Essential (primary) hypertension; H35.30 Unspecified macular degeneration; E78.5 Hyperlipidemia, unspecified; I48.0 Paroxysmal atrial fibrillation; E03.9 Hypothyroidism, unspecified; Z87.891 Personal history of nicotine dependence; Z88.5 Allergy status to narcotic agent; Z91.048 Other nonmedicinal substance allergy status; Z88.1 Allergy status to other antibiotic agents; Z79.01 Long term (current) use of anticoagulants; Z79.899 Other long term (current) drug therapy; Z85.3 Personal history of malignant neoplasm of breast; Z92.3 Personal history of irradiation; Z90.11 Acquired absence of right breast and nipple

== ENCOUNTER → 2017-09-14 | Outpatient (CLI) | payer MEDICARE, OTHER | LOC: M RAD 10:35 | DX: Z96.652 Presence of left artificial knee joint (principal) | CPT/HCPCS: 78315 ==

== ENCOUNTER → 2017-11-13 | Outpatient (CLI) | payer MEDICARE, OTHER | LOC: M RAD 10:07 | DX: Z12.31 Encounter for screening mammogram for malignant neoplasm of breast (principal); R92.1 Mammographic calcification found on diagnostic imaging of breast; Z90.11 Acquired absence of right breast and nipple; Z85.3 Personal history of malignant neoplasm of breast | CPT/HCPCS: 77067 ==

== ENCOUNTER → 2017-11-18 | Outpatient (CLI) | payer MEDICARE, OTHER | LOC: M ONCR 08:56 | DX: D05.11 Intraductal carcinoma in situ of right breast (principal) | CPT/HCPCS: G0463 ==

== ENCOUNTER → 2018-11-15 | Outpatient (CLI) | payer MEDICARE, OTHER ==
[~2018-11-15] MED LIST changes: -DOKTAB2 PO; +MIRA33504 PO; +PERC5TAB12 PO; +SENN-53 PO; +SENN1TAB84 PO
--- NOTE | 2018-11-15 10:37 | REP ---
UNILATERAL MAMMOGRAM LEFT BREAST WITH 3D TOMOSYNTHESIS: HISTORY: Right breast cancer and mastectomy 1999. Malignant lumpectomy left breast 1998. COMPARISON: 11/13/2017 as well as multiple other prior exams. Left breast mammogram performed in the MLO and CC projections with 3D tomosynthesis. There is mild fibroglandular tissue present, which is stable. There are coarse benign type calcifications present without clustered microcalcifications. There is no new mass or architectural distortion. IMPRESSION: BIRADS 1: BI-RADS/ACR category 1 mammogram. Negative Mammogram. ACR 1 negative mammogram left breast in this patient status post right mastectomy. Suggest followup mammogram in 1 year. This mammogram was interpreted with the aid of an FDA-approved computer-aided detection system. A. Negative x-ray reports should not delay biopsy if a dominant or clinically suspicious mass is present. B. Four to eight percent of cancers are not identified by x-ray. C. Adenosis and dense breasts may obscure an underlying neoplasm. The patient states she/he had a clinical breast exam in November 2017. The patient letter being requested is M1. Electronically Signed by Michael Parker MD 11/15/2018 01:12 P
== END ==
LOC: M RAD 09:06
PROVIDERS: ATTEND Internal Medicine
DX: Z12.31 Encounter for screening mammogram for malignant neoplasm of breast (principal); Z85.3 Personal history of malignant neoplasm of breast; Z90.11 Acquired absence of right breast and nipple

== ENCOUNTER → 2018-11-17 | Outpatient (CLI) | payer MEDICARE, OTHER ==
[~2018-11-17] MED LIST changes: +DOKTAB2 PO; -SENN-53 PO; +SENN1TAB40 PO; -SENN1TAB84 PO
--- NOTE | 2018-11-18 16:29 | RADONC ---
RADIATION ONCOLOGY FOLLOWUP NOTE DATE: 11/17/2018 CHART NUMBER: [id number] DIAGNOSIS: Left breast cancer. STAGE: I, [id number] DIAGNOSIS: Right breast cancer. STAGE: 0, [id number]. ECOG PERFORMANCE STATUS: 0 FOLLOWUP NOTE: Ms. Bartlett is a truly delightful 83-year-old white female with the diagnosis of bilateral breast cancers who is presenting to me today for routine followup visit 20 years post completion of external beam radiation therapy for her left breast and 19 years post completion of external beam radiation therapy for her right breast. The patient presents today reporting that she is doing quite well with no complaints at this time related to radiation therapy or disease. She has no breast or bone pain. REVIEW OF SYSTEMS: The patient's review of systems is noncontributory. Denies nausea, vomiting, fevers, chills, night sweats, diplopia, headaches, anxiety or depression, anorexia, weight loss, visual disturbances, chest pain, urinary or bowel difficulties, bone pain, or neurological problems. PHYSICAL EXAMINATION: The patient is a well-developed, well-nourished, 83-year-old white female, in no acute distress. HEENT exam is normocephalic, atraumatic. Extraocular movements are intact. There is no palpable cervical, supraclavicular, infraclavicular, axillary, or inguinal lymphadenopathy present. Lungs are clear to auscultation and percussion. Heart has a regular rate and rhythm. Abdomen is benign with no hepatosplenomegaly, masses, or tenderness. Breast examination reveals the patient's right breast is free of masses or discharge. Her right reconstructed chest wall is free of nodularity, ulceration or evidence of recurrent disease. Skeletal examination reveals no tenderness to pressure or percussion of the bony skeleton. Extremities reveal no clubbing, cyanosis, or edema. Neurologic exam is grossly intact, as is the remainder of the physical examination. ASSESSMENT: The patient is clinically JUICE at this time. I am now discharging her from my followup except on a p.r.n. basis. She will continue her followup with Dr. Andres, who is ordering her routine mammography studies. cc: Thanh Andres Jr, MD
== END ==
LOC: M ONCR 08:51
PROVIDERS: ATTEND Radiology Radiation Oncology
DX: Z85.3 Personal history of malignant neoplasm of breast (principal)

== ENCOUNTER → 2019-11-07 | Outpatient (CLI) | payer MEDICARE, OTHER ==
[~2019-11-07] MED LIST changes: -DOKTAB2 PO; +SENN-53 PO; -SENN1TAB40 PO; +SENN1TAB84 PO
[2019-11-07 11:53] LABS: BASO # 0.1 10^3/uL (0.0-0.2); BASO % 1.1 % (0.0-1.0); EOS # 0.2 10^3/uL (0.0-0.5); EOS % 2.9 % (0.0-3.0); HEMATOCRIT 41.9 % (36.0-47.0); HEMOGLOBIN 13.4 g/dl (12.0-15.5); LYMPH % 36.5 % (24.0-44.0); MEAN CORPUSCULAR HEMOGLOBIN 30.3 pg (27.0-33.0); MEAN CORPUSCULAR VOLUME 94.8 fl (80.0-96.0); MONO # 0.6 10^3/uL (0.0-0.8); MONO % 10.7 % (0.0-5.0); NEUTROPHILS # 2.7 10^3/uL (1.5-8.5); NEUTROPHILS % 48.6 % (36.0-66.0); PLATELET COUNT, AUTOMATED 261 10^3/uL (150-450); RED BLOOD COUNT 4.42 10^6/uL (4.00-5.40); WHITE BLOOD COUNT 5.6 10^3/uL (4.0-10.0)
[2019-11-07 12:22] LABS: ERYTHROCYTE SEDIMENTATION RATE 11 mm/hr (0-30)
== END ==
LOC: M LAB 10:59
PROVIDERS: ATTEND Physician Assistant
DX: Z96.653 Presence of artificial knee joint, bilateral (principal)

== ENCOUNTER → 2019-11-21 | Outpatient (CLI) | payer MEDICARE, OTHER ==
--- NOTE | 2019-11-21 16:08 | REPMRS ---
Patient History The patient states she had a clinical breast exam in November 2019. Family history of colorectal cancer at age 50 or over in maternal uncle. Malignant mastectomy of the right breast, 1999. Malignant lumpectomy of the left breast, 1998. Radiation therapy of the left breast, 1998. Digital Woman Screen Mammo: November 21, 2019 - Exam #: [id number] Bilateral CC and MLO view(s) were taken. Technologist: Milagro Kirk Technologist Prior study comparison: November 15, 2018, bilateral digital mammo screening bilat, performed at [facility]. November 13, 2017, bilateral digital mammo screening bilat, performed at [facility]. November 12, 2016, bilateral digital mammo screening bilat, performed at [facility]. FINDINGS: There are scattered fibroglandular densities. There has been no change in the appearance of the left breast parenchyma in the interval since the prior examination. No mass, architectural distortion, or microcalcific grouping has developed. There are benign macrocalcifications and there are two needle biopsy marker clips again noted in the left breast and unchanged. The Volpara volumetric breast density category is: B . No suspicious finding. 3-D tomosynthesis shows no additional findings. Assessment: BI-RADS/ACR category 2 mammogram. Benign Findings. Recommendation Routine screening mammogram of the left breast in 1 year. This mammogram was interpreted with the aid of an FDA-approved computer-aided dectection system. Electronically Signed By: Rivas Durham MD 11/21/19 [id number]
== END ==
LOC: M WHC 14:51
PROVIDERS: ATTEND Internal Medicine
DX: Z12.31 Encounter for screening mammogram for malignant neoplasm of breast (principal); Z90.11 Acquired absence of right breast and nipple; Z86.018 Personal history of other benign neoplasm; Z92.3 Personal history of irradiation

== ENCOUNTER → 2020-11-02 | Outpatient (REF) | payer MEDICARE, OTHER | LOC: M LAB REF 11:26 | PROVIDERS: ATTEND Internal Medicine | DX: E87.1 Hypo-osmolality and hyponatremia (principal) ==

== ENCOUNTER → 2020-11-23 | Outpatient (CLI) | payer MEDICARE, OTHER ==
--- NOTE | 2020-11-23 10:07 | REPMRS ---
Patient History The patient states she had a clinical breast exam in November 2020. Patient is postmenopausal and has history of bilateral breast cancer at age 64. Family history of colorectal cancer at age 50 or over in maternal uncle. Malignant mastectomy of the right breast, 1999. Malignant lumpectomy of the left breast, 1998. Radiation therapy of the left breast, 1998. Took tamoxifen for 5 years. Patient states no breast complaints today. Patient has signed MRS History Sheet. Digital Woman Screen Mammo: November 23, 2020 - Exam #: [id number] Bilateral CC and MLO view(s) were taken. Technologist: Gisele Agudelo, Technologist Prior study comparison: November 21, 2019, bilateral digital woman screen mammo performed at [facility]. November 15, 2018, bilateral digital mammo screening bilat, performed at [facility]. November 13, 2017, bilateral digital mammo screening bilat, performed at [facility]. FINDINGS: There are scattered fibroglandular densities. There has been no change in the appearance of the left breast parenchyma in the interval since the prior examination. There are postoperative surgical clips in the 6 o'clock position of the left breast unchanged adjacent to a large benign calcification. There is a needle biopsy marker clip in the upper outer quadrant of the left breast as well. No mass, architectural distortion, or microcalcific grouping has developed. No suspicious finding. 3-D tomosynthesis shows no additional findings. Assessment: BI-RADS/ACR category 2 mammogram. Benign Findings. Recommendation Routine screening mammogram of the left breast in 1 year. This mammogram was interpreted with the aid of an FDA-approved computer-aided dectection system. Electronically Signed By: Rivas Durham MD 11/23/20 [id number]
== END ==
LOC: M WHC 07:52
PROVIDERS: ATTEND Internal Medicine
DX: Z12.31 Encounter for screening mammogram for malignant neoplasm of breast (principal); Z90.11 Acquired absence of right breast and nipple; Z85.3 Personal history of malignant neoplasm of breast; Z80.0 Family history of malignant neoplasm of digestive organs; Z92.3 Personal history of irradiation

== ENCOUNTER → 2021-01-04 | Outpatient (REF) | payer MEDICARE, OTHER ==
[2021-01-04 16:42] LABS: APPEARANCE, URINE CLOUDY (CLEAR); BACTERIA, URINE AUTO NEGATIVE (NEGATIVE); BILIRUBIN, URINE AUTO NEGATIVE (NEGATIVE); BLOOD, URINE BLOOD 2+ (NEGATIVE); COLOR, URINE YELLOW (YELLOW); GLUCOSE, URINE (UA) AUTO NEGATIVE (NEGATIVE); KETONE, URINE AUTO NEGATIVE (NEGATIVE); LEUKOCYTE ESTERASE, URINE AUTO 3+ (NEGATIVE); NITRITE, URINE AUTO NEGATIVE (NEGATIVE); PROTEIN, URINE AUTO 1+ mg/dL (NEGATIVE); RBC, URINE AUTO 70 /HPF (0-3); RENAL EPITHELIAL CELLS 2 /HPF; SPECIFIC GRAVITY URINE AUTO 1.011 (1.002-1.035); SQUAMOUS EPITHELIAL CELL UR AU 2 /HPF (0-6); UROBILINOGEN, URINE AUTO 0.2 mg/dL (0.0-2.0); WBC, URINE AUTO TNTC /HPF (0-3)
== END ==
LOC: M LAB REF 16:08
PROVIDERS: ATTEND Physician Assistant Medical
DX: R30.0 Dysuria (principal)

== ENCOUNTER → 2021-09-17 | Outpatient (CLI) | payer MEDICARE, OTHER | LOC: M WUC 11:07 | PROVIDERS: ATTEND Internal Medicine | DX: R05.3 Chronic cough (principal); K44.9 Diaphragmatic hernia without obstruction or gangrene ==

== ENCOUNTER → 2021-11-26 | Outpatient (CLI) | payer MEDICARE, OTHER | LOC: M WHC 08:53 | PROVIDERS: ATTEND Internal Medicine | DX: Z12.31 Encounter for screening mammogram for malignant neoplasm of breast (principal); Z85.3 Personal history of malignant neoplasm of breast; Z90.11 Acquired absence of right breast and nipple ==

== ENCOUNTER 2022-02-09 15:42 | Emergency (ER) | payer MEDICARE, OTHER ==
[~2022-02-09] VITALS: Ht 162.6 cm; Wt 90.5 kg
[2022-02-09] MEDS ORDERED: ACETAMINOPHEN TAB 650MG DOSE (2X325MG) PO ONE (16:25)
[2022-02-09] MEDS ORDERED: CYCLOBENZAPRINE 5MG TABLET PO ONE (16:25)
[2022-02-09 18:50] VITALS: BP 189/89
[2022-02-09] MEDS ORDERED: CYCL5TAB PO (19:08)
== END 2022-02-10 01:41 | disposition home or self-care (01) ==
LOC: M ED 15:42
DX: S09.90XA Unspecified injury of head, initial encounter (principal); S80.01XA Contusion of right knee, initial encounter; S80.02XA Contusion of left knee, initial encounter; W10.9XXA Fall (on) (from) unspecified stairs and steps, initial encounter; Y92.009 Unspecified place in unspecified non-institutional (private) residence as the place of occurrence of the external cause; G89.29 Other chronic pain; M50.30 Other cervical disc degeneration, unspecified cervical region; M51.36 Other intervertebral disc degeneration, lumbar region; E03.9 Hypothyroidism, unspecified; I10 Essential (primary) hypertension; F32.A Depression, unspecified; Z88.1 Allergy status to other antibiotic agents; Z88.8 Allergy status to other drugs, medicaments and biological substances; Z96.653 Presence of artificial knee joint, bilateral

== ENCOUNTER → 2022-02-14 | Outpatient (REF) | payer MEDICARE, OTHER ==
[~2022-02-14] MED LIST changes: +CYCL5TAB PO
== END ==
LOC: M LAB REF 16:22
PROVIDERS: ATTEND Internal Medicine
DX: E79.0 Hyperuricemia without signs of inflammatory arthritis and tophaceous disease (principal)

== ENCOUNTER → 2022-02-17 | Outpatient (CLI) | payer MEDICARE, OTHER | LOC: M SOG 16:03 | PROVIDERS: ATTEND Orthopaedic Surgery | DX: M54.50 Low back pain, unspecified (principal); K21.9 Gastro-esophageal reflux disease without esophagitis ==

== ENCOUNTER → 2022-09-09 | Outpatient (CLI) | payer MEDICARE, OTHER ==
[2022-09-09 17:48] LABS: BASO # 0.1 10^3/uL (0.0-0.2); BASO % 0.8 % (0.0-1.0); EOS # 0.1 10^3/uL (0.0-0.5); EOS % 2.2 % (0.0-3.0); HEMATOCRIT 37.9 % (36.0-47.0); HEMOGLOBIN 12.4 g/dl (12.0-15.5); LYMPH # 1.9 10^3/uL (1.5-5.0); LYMPH % 32.3 % (24.0-44.0); MEAN CORPUSCULAR HEMOGLOBIN 31.4 pg (27.0-33.0); MEAN CORPUSCULAR HGB CONC 32.7 g/dl (32.0-36.5); MEAN CORPUSCULAR VOLUME 95.9 fl (80.0-96.0); MONO # 0.8 10^3/uL (0.0-0.8); MONO % 14.3 % (2.0-8.0); NEUTROPHILS % 50.2 % (36.0-66.0); PLATELET COUNT, AUTOMATED 307 10^3/uL (150-450); RED BLOOD COUNT 3.95 10^6/uL (4.00-5.40); WHITE BLOOD COUNT 5.9 10^3/uL (4.0-10.0)
[2022-09-09 18:02] LABS: ERYTHROCYTE SEDIMENTATION RATE 34 mm/hr (0-30)
== END ==
LOC: M PLALAB 15:50
PROVIDERS: ATTEND Physician Assistant
DX: Z96.653 Presence of artificial knee joint, bilateral (principal)

== ENCOUNTER → 2022-10-15 | Outpatient (CLI) | payer MEDICARE, OTHER | LOC: M RAD 09:53 | PROVIDERS: ATTEND Physician Assistant | DX: Z96.653 Presence of artificial knee joint, bilateral (principal) | CPT/HCPCS: 78315; A9503 ==

== ENCOUNTER → 2022-12-17 | Outpatient (CLI) | payer MEDICARE, OTHER | LOC: M WHC 08:57 | PROVIDERS: ATTEND Nurse Practitioner Family | DX: Z12.31 Encounter for screening mammogram for malignant neoplasm of breast (principal); Z85.3 Personal history of malignant neoplasm of breast; Z90.11 Acquired absence of right breast and nipple ==

== ENCOUNTER → 2022-12-17 | Outpatient (REF) | payer MEDICARE, OTHER | LOC: M SFHCWAGY 17:53 | PROVIDERS: ATTEND Nurse Practitioner Family | DX: Z12.4 Encounter for screening for malignant neoplasm of cervix (principal); N95.2 Postmenopausal atrophic vaginitis | CPT/HCPCS: 87624; G0123 ==

== ENCOUNTER → 2023-11-10 | Outpatient (REF) | payer MEDICARE, OTHER ==
[2023-11-10 17:41] LABS: LIPASE 28 U/L (12-53)
[2023-11-10 17:42] LABS: AMYLASE 58 U/L (30-118)
== END ==
LOC: M LAB REF 16:37
PROVIDERS: ATTEND Nurse Practitioner Adult Health
DX: R10.9 Unspecified abdominal pain (principal)

== ENCOUNTER → 2023-11-17 | Outpatient (CLI) | payer MEDICARE, OTHER ==
[~2023-11-17] MED LIST changes: +GASTROGRAFIN SOLUTION 30ML As Ordered ONE; +ISOVUE-370 76% 100ML VIAL As Ordered ONE
== END ==
LOC: M RAD 11:08
PROVIDERS: ATTEND Nurse Practitioner Adult Health
DX: R10.9 Unspecified abdominal pain (principal); K44.9 Diaphragmatic hernia without obstruction or gangrene
CPT/HCPCS: 74178; 87338; Q9963; Q9967

== ENCOUNTER → 2023-12-25 | Outpatient (CLI) | payer MEDICARE, OTHER ==
[~2023-12-25] MED LIST changes: -GASTROGRAFIN SOLUTION 30ML As Ordered ONE; -ISOVUE-370 76% 100ML VIAL As Ordered ONE
== END ==
LOC: M SOG 08:04
PROVIDERS: ATTEND Orthopaedic Surgery
DX: M54.2 Cervicalgia (principal)

== ENCOUNTER → 2024-01-08 | Outpatient (CLI) | payer MEDICARE, OTHER | LOC: M SOG 08:32 | PROVIDERS: ATTEND Orthopaedic Surgery | DX: M13.842 Other specified arthritis, left hand (principal) ==

== ENCOUNTER → 2024-01-28 | Outpatient (CLI) | payer MEDICARE, OTHER | LOC: M WHC 14:24 | PROVIDERS: ATTEND Internal Medicine | DX: Z12.31 Encounter for screening mammogram for malignant neoplasm of breast (principal); R92.8 Other abnormal and inconclusive findings on diagnostic imaging of breast ==

== ENCOUNTER → 2024-02-09 | Outpatient (REF) | payer MEDICARE, OTHER | LOC: M LAB REF 13:06 | PROVIDERS: ATTEND Internal Medicine | DX: E79.0 Hyperuricemia without signs of inflammatory arthritis and tophaceous disease (principal) ==

== ENCOUNTER → 2024-12-22 | Outpatient (REF) | payer MEDICARE, OTHER ==
[~2024-12-22] MED LIST changes: -CYCL5TAB PO; +CYCL5TAB4 PO
[2024-12-22 12:41] LABS: APPEARANCE, URINE CLEAR (CLEAR); BACTERIA, URINE AUTO 1+ (NEGATIVE); BILIRUBIN, URINE AUTO NEGATIVE (NEGATIVE); BLOOD, URINE BLOOD 1+ (NEGATIVE); GLUCOSE, URINE (UA) AUTO NEGATIVE (NEGATIVE); KETONE, URINE AUTO NEGATIVE (NEGATIVE); LEUKOCYTE ESTERASE, URINE AUTO 2+ (NEGATIVE); NITRITE, URINE AUTO NEGATIVE (NEGATIVE); PROTEIN, URINE AUTO NEGATIVE (NEGATIVE); RBC, URINE AUTO 8 /HPF (0-3); SPECIFIC GRAVITY URINE AUTO 1.012 (1.002-1.035); SQUAMOUS EPITHELIAL CELL UR AU 1 /HPF (0-6); UROBILINOGEN, URINE AUTO 0.2 mg/dL (0.0-2.0); WBC, URINE AUTO 31 /HPF (0-3)
== END ==
LOC: M LAB REF 12:04
PROVIDERS: ATTEND Physician Assistant
DX: N39.0 Urinary tract infection, site not specified (principal)

== ENCOUNTER → 2025-01-17 | Outpatient (REF) | payer MEDICARE, OTHER | LOC: M LAB REF 14:44 | PROVIDERS: ATTEND Internal Medicine | DX: R42 Dizziness and giddiness (principal); E79.0 Hyperuricemia without signs of inflammatory arthritis and tophaceous disease ==